=== PATIENT | male | born 2000 | race Caucasian/White ===

== ENCOUNTER 2019-02-13 10:39 | Day surgery (SDC) | payer OTHER ==
--- NOTE | 2019-02-12 16:40 | HP ---
Date/Time of Note Date/Time of Note DATE: 02/12/19 TIME: 16:33 Assessment/Plan Assessment/Plan Hospital Course (Recall) 18 yo M w/ R knee ACL tear, PHLM tear, LFC chondral lesion Discussed ACL tear and operative management in detail, discussed use of autograft BTB vs hamstring graft. Discussed impaction injury and possibility microfracture upon observation. Risk-benefits and alternatives discussed and answered all questions. Explained the recovery process in detail. Rx: [place] PLAN FOR: RIGHT knee arthroscopy ACL reconstruction with BTB autograft, meniscal repair vs debridement, possible microfracture HPI/ROS Peds Admit Date/Time Admit Date/Time Hx of Present Illness Free Text/Dictation DOI 11/12/18 JV: Soccer Patient states he remains symptomatic but has stopped playing soccer. Patient continues to have right knee pain, has been light jogging. Continues to feel popping, mild swelling and pain. Constitutional: no other recent illness Eyes: no complaints ENT: no complaints Respiratory: no complaints Cardiovascular: no complaints Musculoskeletal: other (R knee) Psychological: no complaints PMH/Family/Social Past Medical History Primary Care Provider Fely Kingston MD Immunization: UTD Developmental History: appropriate Diet History: regular for age Past Surgical History: none Allergies: Coded Allergies: No Known Allergy (Unverified , 02/12/19) Family History Significant Family History: no pertinent family hx Social History Tobacco exposure in home: No Exam/Review of Systems Exam Free Text/Dictation General: NAD, well-appearing Gait: nonantalgic Alignment: neutral RLE no effusion FROM 0-130 neg [place] NTTP medial/lateral joint line 6mm anterior drawer Renée 2B neg PD quad atrophy stable to varus and valgus at 0/30 +EHL/FHL/GCS/TA SILT FDWS/M/L/D/P 2+DP Results Results 24hrs XR R knee 11/19/18 at [place]- WNL, physes closed MRI R Knee at [facility] 12/05/18- ACL tear, PHLM tear, chondral defect 2x1.2cm on LFC with classic bone bruising, no e/o loose body TOÑO SIEGEL Feb 12, 2019 16:40
[2019-02-12 17:52] VITALS: BMI 28.1
[~2019-02-13] VITALS: Ht 175.3 cm; Wt 86.2 kg
[2019-02-13] VITALS (13 sets, daily range): BP systolic 137–164; BP diastolic 85–100; PULSE 56–78; RESP 15–24; Ht 175.3 cm; Wt 86.2 kg
[~2019-02-13 10:39] MED LIST: CEFAZOLIN (20 MG/ML) IV SYG IV* ONE; CEFAZOLIN 2 GM/50 ML (PMX) 50 ML IVPB ONE; LIDOCAINE 4% CR TOP ONE
[2019-02-13] MEDS: LACTATED RINGER'S 1,000 ML IV SCH ×2 (11:42→17:20)
[2019-02-13] MEDS ORDERED: MEPERIDINE 25 MG INJ IV PRN (12:30)
[2019-02-13] MEDS ORDERED: DIPHENHYDRAMINE 50 MG INJ IV PRN (12:30)
[2019-02-13] MEDS ORDERED: METOCLOPRAMIDE 10 MG INJ IV PRN (12:30)
[2019-02-13] MEDS ORDERED: FENTAnyl 50 MCG/ML VIAL IV PRN ×3 (12:30)
[2019-02-13] MEDS ORDERED: ONDANSETRON 4 MG INJ IV PRN (12:30)
[2019-02-13] MEDS ORDERED: ALBUTEROL 0.083% (NEB) 2.5 MG/3 ML AMP HHN PRN (12:30)
[2019-02-13] MEDS ORDERED: HYDROmorphONE 1 MG/5 ML IV SYRINGE IV PRN ×3 (12:30)
--- NOTE | 2019-02-13 12:30 | PREAC ---
Date/Time of Note Date/Time of Note DATE: 02/13/19 TIME: 12:30 Anesthesia Eval and Record Evaluation Time Pre-Procedure Interview DATE: 02/13/19 TIME: 12:30 Age 18 Sex male NPO: 8 hrs Preoperative diagnosis R acl injury Planned procedure R ACL reconstruction Past Medical History Past Medical History: Includes GI: Obesity Surgery & Anesthesia Issues No known issue Meds Anticoagulation: No Beta Ariel within 24 hr: No Reason Beta Ariel not given: Pt. not on B-Ariel No Active Prescriptions or Reported Meds Current Medications Lactated Ringer's 1,000 ml @ 25 mls/hr Q24H IV Last administered on 02/13/19at 11:42; Admin Dose 25 MLS/HR; Start 02/12/19 at 16:40 Meds reviewed: Yes Allergies Coded Allergies: No Known Allergy (Unverified , 02/13/19) Allergies Reviewed: Yes Labs/Studies Labs Reviewed: Reviewed by anesthesiologist test: N/A Pre-procedure Exam Last vitals Vital Signs Date Temp Pulse Resp B/P (MAP) Pulse Ox O2 O2 Flow FiO2 Time Delivery Rate 02/13/19 98.5 56 18 144/88 96 Room Air 11:28 (106) Airway: Adequate mouth opening, Adequate thyromental dist Mallampati: Mallampati II Teeth: Normal Lung: Normal Heart: Normal ASA Physical Status ASA physical status: 2 Emergency: None Planned Anesthetic General/MAC: ETT Nerve block: Femoral (right) Pre-operative Attestations Prior to commencing anesthesia and surgery, the patient was re-evaluated, there was verification of: *The patient's identity *The results of appropriate recent lab work and preoperative vital signs *The above evaluation not changing prior to induction *Anesthetic plan, risk benefits, alternative and complications discussed with patient/family; questions answered; patient/family understands, accepts and wishes to proceed. LITO MACARIO Feb 13, 2019 12:30
[2019-02-13] MEDS ORDERED: DESFLURANE 15 MIN ONE (12:40)
[2019-02-13] MEDS ORDERED: MIDAZOLAM 1 MG/ML 2 ML INJ ONE (12:42)
[2019-02-13] MEDS ORDERED: FENTAnyl 50 MCG/ML VIAL ONE ×2 (12:42→16:22)
[2019-02-13] MEDS ORDERED: ROPIVACAINE 0.5 % 30 ML VIAL ONE (12:42)
[2019-02-13] MEDS ORDERED: BUPIVACAINE 0.25% (MPF) 30 ML INJ ONE (12:43)
[2019-02-13] MEDS ORDERED: LIDOCAINE 1%/EPI 30 ML INJ ONE (12:43)
[2019-02-13] MEDS ORDERED: PROPOFOL 20 ML ONE (16:11)
[2019-02-13] MEDS ORDERED: LIDOCAINE 100 MG SYRINGE ONE (16:11)
[2019-02-13] MEDS ORDERED: SUGAMMADEX SODIUM 200 MG/2 ML VIAL IV ONE (16:11)
[2019-02-13] MEDS ORDERED: CEFAZOLIN 1 GM INJ ONE (16:11)
[2019-02-13] MEDS ORDERED: ROCURONIUM 50 MG INJ ONE (16:11)
[2019-02-13] MEDS ORDERED: SUCCINYLCHOLINE CHLORIDE 100 MG/5 ML SYG IV ONE (16:11)
--- NOTE | 2019-02-13 17:02 | SIPON ---
Date/Time of Note Date/Time of Note DATE: 02/13/19 TIME: 17:00 Operative Report Preoperative Diagnosis RIGHT knee ACL tear, PHLM tear, LFC osteochondral lesion Postoperative Diagnosis RIGHT knee ACL tear, PHLM tear, LFC osteochondral lesion, loose bodies Operation/Procedure Performed RIGHT knee arthroscopy, ACL reconstruction with BTB autograft, PHLM debridement, loose body removal, LFC osteochondral debridement and microfracture Surgeon see signature line mailroom assistant none Anesthesia: general, other (R femoral) Estimated blood loss: 0 - 10 ml's Transfusion Required none Specimen none Torniquet: 2 hrs 13 min Grafts/Implants Arthrex metal screws x 2 Complications none TOÑO SIEGEL Feb 13, 2019 17:02
--- NOTE | 2019-02-14 07:12 | OPR ---
DATE OF OPERATION: SURGEON: Beulah French MD OPERATIONS TEAM LEADER: None. ANESTHESIA: Sin Mary MD, right femoral nerve block and general anesthesia. IMPLANTS: Arthrex metal interference screws x2. PREOPERATIVE DIAGNOSES: Right knee: 1. Anterior cruciate ligament tear. 2. Posterior horn lateral meniscal tear. 3. Lateral femoral condylar osteochondral lesion. POSTOPERATIVE DIAGNOSES: Right knee: 1. Anterior cruciate ligament tear. 2. Posterior horn lateral meniscal tear. 3. Lateral femoral condyle osteochondral lesion and loose bodies. OPERATION PERFORMED: Right knee arthroscopy, ACL reconstruction with BTB autograft, posterior horn l ateral meniscal debridement, loose body removal, lateral femoral condylar osteochondral debridement a nd microfracture. TOURNIQUET TIME: 2 hours 13 minutes. ESTIMATED BLOOD LOSS: 10 mL COMPLICATIONS: None. INDICATIONS: Mat is a 18-year-old male who injured his knee playing soccer on 11/12/2018. He fe lt immediate pop, had immediate pain. He has continued pain and symptoms of instability and popping and swelling of the knee as well as pain. I saw him in the clinic. X-rays were negative for any fra ctures. Physes were closed. MRI demonstrated an ACL tear, posterior horn lateral meniscal tear and a chondral defect of lateral femoral condyle measured about 20 x 12 mm. Given his age, his injury, w e discussed operative management. We discussed risks, benefits and alternatives of a right knee arth roscopy, ACL reconstruction with BTB autograft, meniscal repair versus debridement, possible microfra cture. We discussed all risks, benefits and alternatives in detail and all questions were answered a nd the patient elected to proceed with the procedure. DESCRIPTION OF PROCEDURE: The patient was brought to the operating room. Timeout was performed conf irming patient, operative site and procedure. He was placed supine on the operating table. He under went general intubation by anesthesia without any complications. He then underwent a right femoral n erve block. The right lower extremity was then prepped and draped in a sterile fashion. Of note, ex am under anesthesia prior to start of the case demonstrated that he had full range of motion, no effu arik, he was stable to varus and valgus stress at 0 and 30, he had 7 mm of anterior drawer and grade I pivot shift. The right lower extremity was prepped and draped in a sterile fashion. The harvest was first perform ed as the tourniquet was placed to 275 mmHg. A midline incision with a 10 blade, dissecting sharply through the tissue down to the peritenon. Once I was at the peritenon I dissected the peritenon med ial and laterally to visualize the entire patella tendon which measured 36 mm. I then cut the inner one third of the patella tendon with a 10 blade measuring 10 mm in width. I took this down to the ti bial tubercle and measured for a 25 x 10 mm bone block. Proximally I measured for 25 x 10 mm bone bl ock off the patella. I made my cut with an oscillating saw followed by an osteotome. The graft was removed without any difficulty. I then did my diagnostic arthroscopy. Lateral portal was made in st andard fashion. Medial portal was made under direct visualization. Patellofemoral joint was well ap pearing, no evidence of any chondromalacia. I then Dictated By: BEULAH FRENCH MD, MS/SAJAN Conf#: [id number] DID#: [id number]
--- NOTE | 2019-02-14 07:37 | PAC ---
Date/Time of Note Date/Time of Note DATE: 02/14/19 TIME: 07:37 Post-Anesthesia Notes Post-Anesthesia Note Last documented vital signs Vital Signs Date Temp Pulse Resp B/P (MAP) Pulse Ox O2 O2 Flow FiO2 Time Delivery Rate 02/13/19 97.4 60 16 137/93 99 Room Air 17:43 (108) Activity: WNL Respiratory function: WNL Cardiovascular function: WNL Mental status: Baseline Pain reasonably controlled: Yes Hydration appropriate: Yes Nausea/Vomiting absent: Yes LITO MACARIO Feb 14, 2019 07:37
== END 2019-02-13 18:34 | disposition home or self-care (01) ==
LOC: SDS 10:39
PROVIDERS: ATTEND Orthopaedic Surgery
DX: S83.511D Sprain of anterior cruciate ligament of right knee, subsequent encounter (principal); S83.281D Other tear of lateral meniscus, current injury, right knee, subsequent encounter; X58.XXXD Exposure to other specified factors, subsequent encounter
CPT/HCPCS: 29881; 29888; 73560; J0690; J2001; J2250; J2405; J2795; J3010; Z7512; Z7610